=== PATIENT | female | born 1970 | race African-American/Black ===

== ENCOUNTER 2020-12-27 10:42 | Inpatient (IN) | payer OTHER ==
[2020-12-27 14:33] VITALS: BMI 31.9
[2020-12-27] MEDS ORDERED: METHOCARBAMOL 500 MG TABLET PO PRN (16:09)
[2020-12-27] MEDS ORDERED: MAG HYDROX/AL HYDROX/SIMETH 30 ML UNIT-DOSE CUP PO PRN (16:09)
[2020-12-27] MEDS ORDERED: ACETAMINOPHEN 325 MG TABLET (FP) PO PRN ×2 (16:09)
[2020-12-27] MEDS ORDERED: NICOTINE POLACRILEX 2 MG GUM BUC PRN (16:09)
[2020-12-27] MEDS ORDERED: IBUPROFEN 400 MG TABLET (FP) PO PRN (16:09)
[2020-12-27] MEDS ORDERED: BISMUTH SUBSALICYLATE 524 MG/30 ML PO PRN (16:09)
[2020-12-27] MEDS ORDERED: MAGNESIUM HYDROX 2400MG/30ML ORAL SUSPENSION 30 ML CUP PO PRN (16:09)
[2020-12-27] MEDS ORDERED: ONDANSETRON *ODT* 4 MG TABLET SL PRN (16:09)
[2020-12-27] MEDS ORDERED: MENTHOL/PHENOL 1 EACH UD MM PRN (16:09)
[2020-12-27] MEDS ORDERED: MAGNESIUM CITRATE 300 ML BOTTLE PO PRN (16:09)
[2020-12-27] MEDS ORDERED: METHADONE HCL 10 MG TABLET (FOR DETOX USE ONLY) PO ONE (16:09)
[2020-12-27] MEDS: cloNIDine HCL 0.1 MG TABLET PO PRN (18:45)
[2020-12-27] MEDS: hydrOXYzine PAMOATE 25 MG CAPSULE (FP) PO SCH ×2 (18:45→23:02)
[2020-12-27] MEDS: MELATONIN 5 MG TABLETS PO SCH (23:01)
[2020-12-27] MEDS: THIAMINE HCL 100 MG TABLET (FP) PO SCH (23:02)
[2020-12-28] MEDS: hydrOXYzine PAMOATE 25 MG CAPSULE (FP) PO SCH ×5 (07:24→22:22)
[2020-12-28] MEDS ORDERED: METHADONE HCL 10 MG TABLET (FOR DETOX USE ONLY) ONE (08:58)
[2020-12-28] MEDS ORDERED: METHADONE HCL 5 MG TABLET (FOR DETOX USE ONLY) ONE (08:58)
[2020-12-28] MEDS ORDERED: METHADONE (DETOX) 20 MG, METHADONE (DETOX) 5 MG PO ONE (10:00)
[2020-12-28] MEDS: PRENATAL VITAMINS W/ FOLIC ACID TABLET (FP) PO SCH (10:37)
[2020-12-28] MEDS: cloNIDine HCL 0.1 MG TABLET PO PRN (17:22)
[2020-12-28] MEDS: MELATONIN 5 MG TABLETS PO SCH (22:22)
[2020-12-28] MEDS: THIAMINE HCL 100 MG TABLET (FP) PO SCH (22:22)
[2020-12-29] MEDS: cloNIDine HCL 0.1 MG TABLET PO PRN (06:09)
[2020-12-29] MEDS: hydrOXYzine PAMOATE 25 MG CAPSULE (FP) PO SCH ×2 (06:09→09:18)
[2020-12-29] MEDS: PRENATAL VITAMINS W/ FOLIC ACID TABLET (FP) PO SCH (09:18)
[2020-12-29] MEDS ORDERED: METHADONE HCL 10 MG TABLET (FOR DETOX USE ONLY) PO ONE (10:00)
[2020-12-29 10:25] LABS: HEMATOCRIT 40.9 % (32.4-45.2); HEMOGLOBIN 13.9 GM/dL (10.7-15.3); MCH 31.2 pg (25.7-33.7); MCHC 33.9 g/dl (32.0-36.0); MEAN CELL VOLUME 92.3 fl (80-96); MEAN PLT VOLUME 9.2 fl (7.5-11.1); PLATELET COUNT 317 K/MM3 (134-434); RBC 4.44 M/mm3 (3.60-5.2); RDW 14.1 % (11.6-15.6); WHITE BLOOD COUNT 7.5 K/mm3 (4.0-10.0)
[2020-12-29 10:31] LABS: ALBUMIN 3.2 g/dl (3.4-5.0); CALCIUM 9.3 mg/dL (8.5-10.1)
[2020-12-29 10:34] LABS: CREATININE 0.8 mg/dL (0.55-1.3)
[2020-12-29 10:35] LABS: BILIRUBIN,TOTAL 0.9 mg/dL (0.2-1); TOT PROT 6.7 g/dl (6.4-8.2)
[2020-12-29] MEDS ORDERED: hydrOXYzine PAMOATE 25 MG CAPSULE (FP) PO PRN (10:35)
[2020-12-29] MEDS ORDERED: LISINOPRIL 10 MG TABLET PO SCH (10:45)
[2020-12-29 11:51] LABS: SICKLE CELL SCREEN NEGATIVE (NEGATIVE)
[2020-12-29] MEDS: amLODIPine BESYLATE 2.5 MG TABLET (FP) PO SCH (11:56)
[2020-12-29] MEDS: HYDROCHLOROTHIAZIDE 12.5 MG CAPSULE (FP) PO SCH (11:56)
[2020-12-29 13:27] LABS: HIV INTERPRETATION NEGATIVE (NEGATIVE)
[2020-12-29 20:03] VITALS: TEMP 97.1
[2020-12-29] MEDS: MELATONIN 5 MG TABLETS PO SCH (22:12)
[2020-12-29] MEDS: THIAMINE HCL 100 MG TABLET (FP) PO SCH (22:12)
[2020-12-30 08:56] VITALS: BP 126/83; PULSE 68
[2020-12-30] MEDS ORDERED: METHADONE HCL 10 MG TABLET (FOR DETOX USE ONLY) ONE (09:39)
[2020-12-30] MEDS ORDERED: METHADONE HCL 5 MG TABLET (FOR DETOX USE ONLY) ONE (09:39)
[2020-12-30] MEDS ORDERED: METHADONE (DETOX) 10 MG, METHADONE (DETOX) 5 MG PO ONE (10:00)
[2020-12-30] MEDS: amLODIPine BESYLATE 2.5 MG TABLET (FP) PO SCH (10:29)
[2020-12-30] MEDS: PRENATAL VITAMINS W/ FOLIC ACID TABLET (FP) PO SCH (10:29)
[2020-12-30] MEDS: HYDROCHLOROTHIAZIDE 12.5 MG CAPSULE (FP) PO SCH (10:29)
[2020-12-31] MEDS ORDERED: METHADONE HCL 10 MG TABLET (FOR DETOX USE ONLY) PO ONE (10:00)
[2021-01-01] MEDS ORDERED: METHADONE HCL 5 MG TABLET (FOR DETOX USE ONLY) PO ONE (06:00)
== END 2020-12-30 11:39 | disposition left against medical advice (07) | DRG 894 ==
LOC: YASAS 10:42 → Y3N 16:38
PROVIDERS: ADMIT Allergy & Immunology; ATTEND Allergy & Immunology
PROC: HZ2ZZZZ Detoxification Services for Substance Abuse Treatment (ICD-10-PCS; principal; 2020-12-27)
DX: F11.23 Opioid dependence with withdrawal (principal); F14.20 Cocaine dependence, uncomplicated; F17.210 Nicotine dependence, cigarettes, uncomplicated; I10 Essential (primary) hypertension; Z91.14 Patient's other noncompliance with medication regimen
CPT/HCPCS: 36415; 80053; 81025; 85027; 85660; 86780; 87389; 93005; 93010; C9803; J0735; U0003; U0005